=== PATIENT | female | born 1985 | race Hispanic/Latino ===

== ENCOUNTER 2021-09-18 13:39 | Outpatient (CLI) | payer OTHER | END 2021-09-18 13:40 | disposition home or self-care (01) | LOC: CSHULT 13:39 | PROVIDERS: ATTEND Family Medicine | DX: R74.8 Abnormal levels of other serum enzymes (principal); K76.0 Fatty (change of) liver, not elsewhere classified | CPT/HCPCS: 76705 ==

== ENCOUNTER 2023-07-19 07:59 | Emergency (ER) | payer MEDICAID, SELFPAY ==
[2023-07-19] MEDS ORDERED: Ipratropium/Albuterol 3 ML NEB ONE (11:24)
[2023-07-19] MEDS ORDERED: Dexamethasone 10 MG/ML VIAL ONE (12:09)
== END 2023-07-19 12:30 | disposition home or self-care (01) ==
LOC: CSHERS 07:59
DX: R05.9 Cough, unspecified (principal); E11.9 Type 2 diabetes mellitus without complications; E78.5 Hyperlipidemia, unspecified
CPT/HCPCS: 71045; J1100; J7620

== ENCOUNTER 2024-10-12 12:50 | Outpatient (CLI) | payer OTHER | END 2024-10-12 12:51 | disposition home or self-care (01) | LOC: CSHMAMMO 12:50 | PROVIDERS: ATTEND Family Medicine | DX: Z12.31 Encounter for screening mammogram for malignant neoplasm of breast (principal) | CPT/HCPCS: 77063; 77067 ==